=== PATIENT | male | born 1980 | race Caucasian/White ===

== ENCOUNTER → 2021-11-15 | Outpatient (CLI) | payer BC ==
[~2021-11-15] VITALS: Ht 177.8 cm; Wt 124.7 kg
[~2021-11-15] MED LIST: ACETAMINOPHEN325 MG PO; ADDERALL 30 MG30 MG PO; ADIPEX-P37.5 M1 PO; BACLOFEN 10MG T10 MG PO; BARIATRIC MV-I1 EACH PO; BUPROPION XL300 MG PO; CARBAMAZEPINE100 M2 PO; DEPO-TESTO200 MG/1 M IM; FLEXERIL PO; GABAPENTIN600 M1 PO; KEFLEX500 MG PO; OXYCONTIN10 M1 PO; PANTOPRAZOLE SO40 M1 PO; PERCOCET 5-3251 EACH PO; PROZAC10 M1 PO; PYRIDIUM200 MG PO; VITAMIN B-121000 MC2 SUBLING; VYVANSE50 MG PO; VYVANSE60 MG PO; ZANAFLEX4 M1 PO; [UNRECOGNIZED DRUG - OTHER]
--- NOTE | ~2021-11-15 | HPC ---
[facility] [place] [address] PAIN MANAGEMENT CONSULTATION Name: JEREL NICHOLS Room #: REG Lana GonzalezAlexeiPrudenceAlexei#: [id number] Admission: 11/15/21 Attend Phys: Twin Flores DO Discharge: Date of : 76 Report #: [id number] THIS REPORT FOR: cc: Kolton Carrillo,Kolton Hayes,Twin Tyler DO ~ cc: Kolton Carrillo DO DATE OF SERVICE: 11/15/2021 CHIEF COMPLAINT: Left jaw pain. HISTORY OF PRESENT ILLNESS: As you know, the patient is a 41-year-old male, reporting acute onset of left jaw pain beginning somewhere about 10/25/2021. The patient denied injury or trauma to the facial area that may have led to symptom development. He sought evaluation and was advised that his symptoms were likely related to otitis media and was receiving medications, this did not provide improvement. He returned with continued pain. He was then sent to see dentistry professionals. He apparently had some wisdom teeth extracted, again with no improvement in symptoms. He was then sent on to EMT as there was concern the patient might be suffering from temporomandibular joint pain. During that evaluation, the evaluation of the ear structures was normal. There were no concerning findings. He was given a presumptive diagnosis of either temporomandibular joint pain or trigeminal neuralgia. The patient was recently seen by Dr. Kim, Neurology, who advised the patient his symptoms more correlate to trigeminal neuralgia than temporomandibular joint symptoms and was advised to increase his carbamazepine from 100 mg 3 times a day to 200 mg 3 times a day, this was just adjusted today. He has not made the adjustments in medications prior to our visit. He has been referred to our service to discuss whether or not other treatment options might be available. He comes to us with a photograph of his facial structures prior to an ER visit. He shows drooping findings on the left side, more consistent with a Alicia's palsy. He has been referred to our service to discuss treatment options. The patient reports his pain is continuous, steady and constant. He describes the pain as a shooting, aching, sharp, stabbing and throbbing sensation. He places current pain score at 7/10. Daily average at 7/10. He states the pain is 10/10 without medications. He states that his pain is exacerbated with eating, chewing or when his medications wear off. He states that his pain was improved with prednisone therapy, specifically, and lying on a pillow. He has been referred to our service to discuss treatment options to address left facial pain. PAST MEDICAL HISTORY: 1. Essential hypertension, obstructive sleep apnea, allergic rhinitis, triglyceridemia. 2. Chronic low back pain, depression and anxiety. [facility] [address] [place] [address] PAIN MANAGEMENT CONSULTATION Name: JEREL NICHOLS Room #: REG Lana Jolly#: [id number] Admission: 11/15/21 Attend Phys: Twin Flores DO Discharge: Date of : 76 Report #: [id number] 3. Eating disorder. 4. ADD. 5. Iron deficiency anemia. 6. GERD. 7. History of neuralgia. 8. Erectile dysfunction. 9. Bruxism. PAST SURGICAL HISTORY: 1. Bariatric surgery. 2. Cholecystectomy. SOCIAL HISTORY: The patient reports that he is a nonsmoker. He denies IV or illicit drug use. Admits to occasional alcohol beverage. 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 He is not on disability. He is not obtaining disability income and he is not in litigation in regards to pain. He is accompanied by his , present in room today. REVIEW OF SYSTEMS: 1. 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 All other review of systems negative per 12-point review of systems other than those listed in history of present illness. 2. Pain impact score is 61/70, near complete interference of daily activities secondary to pain. ALLERGIES: LATEX. CURRENT MEDICATIONS: Bupropion XL 300 mg once a day, carbamazepine 200 mg 3 times a day, Adderall 30 mg once a day, tizanidine 4 mg twice a day, multivitamin 1 tab per day, acetaminophen 325 mg 6 times a day, cyanocobalamin 1000 mcg per day, gabapentin 600 mg b.i.d. IMAGING: CT of the head without contrast is unremarkable. PHYSICAL EXAMINATION: VITAL SIGNS: Blood pressure 143/86, pulse 84, respiratory rate 20 and unlabored. The patient is 97% on room air. Height 5 feet 10 inches tall, weight 275 pounds, BMI calculated 39.5. GENERAL: Well-developed, well-nourished, well-hydrated exogenously obese 41-year-old male appearing stated age. Pain is rated anywhere from 7-10/10 depending on his medication use. HEENT: Normocephalic, atraumatic. Pupils are round and responsive. He is [address] [address] PAIN MANAGEMENT CONSULTATION Name: JEREL NICHOLS Room #: REG [facility]#: [id number] Admission: 11/15/21 Attend Phys: Twin Flores DO Discharge: Date of : 76 Report #: [id number] intact to light touch throughout the entire facial structures. There is no tinnitus noted over the facial nerve or trigeminal distribution. There are no changes in skin color or texture, concerning of any type of viral etiology. There is noted crepitus with movement of the jaw on the left when compared to the right, directly overlying the temporomandibular joint. NEUROLOGIC: Upper extremity strength equal and symmetrical 5/5, intact to light touch from C5 to T1 dermatomes. ASSESSMENT: 1. Possible trigeminal neuralgia. 2. Possible temporomandibular joint pain. 3. 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 4. Neuropathic pain. PLAN: 1. Based on today's physical exam and history the patient provides, the description the patient uses in regards to pain and the distribution of symptoms, there are 3 possible generators of symptoms. The first being trigeminal neuralgia, though he has no effect on the ophthalmic branch. His branches would more correlate to the V2 and the V3 level without effects of the ophthalmic branch. He could be suffering from temporomandibular joint pain, as he has a longstanding history of bruxism and there is crepitus with movement of the temporomandibular joint on the left side. Deep pressure over this area causes pain intensification, similar to what he is discussing and would correlate to the patient's descriptions of having the sensation of jaw locking up in that area. The other source of the symptoms may be a Alicia's palsy. He does show a picture of himself prior to ER visit, which showed features of Alicia's palsy with drooping facial structures on the left side with resolution within a short period of time, fairly consistent with Alicia's palsy. The patient has sought evaluation through multiple different physicians, initially starting with his primary care physician in the ER. They have given him presumptive diagnoses initially of earache and otitis media and was receiving oral antibiotics with no benefit. He was seen in the Emergency Department with the facial droop on the left and was given a diagnosis of possible Alicia's palsy and/or trigeminal neuralgia. The patient was sent to Dentistry who removed the patient's wisdom teeth on that side without benefit. He did see ENT who gave the patient a diagnosis of possible temporomandibular joint pain versus trigeminal neuralgia. He has also seen Neurology, who has started treating the patient for trigeminal neuralgia, and the patient was then referred on to our clinic to discuss treatment to address these issues. Given the constellation of physicians the patient has seen, I do feel he is on appropriate treatment for virtually each of the processes. The patient has been started on carbamazepine 200 mg dose 3 times a day through his Neurology visit. He has not started the medication as the Neurology visit was this morning. He has been given the presumptive diagnosis of trigeminal neuralgia and they are starting medications appropriate for that therapy. Other [address] [address] PAIN MANAGEMENT CONSULTATION Name: JEREL NICHOLS Room #: REG FROILAN Jolly#: [id number] Admission: 11/15/21 Attend Phys: Twin Flores DO Discharge: Date of : 76 Report #: [id number] treatments that we would recommend that could be possible to use would be an addition of gabapentin, amitriptyline, nortriptyline, clonazepam, or possibly phenytoin. These could all be trialed as part of the treatment course. They are indicated as adjunctive treatment options to the standards, which is carbamazepine, gabapentin, and oxcarbazepine. We also discussed a little bit of some of the surgical options that would be available that would include neuromodulation, percutaneous cryoablation, gamma knife surgery or CyberKnife surgery, or even linear accelerator treatments. Surgical options would include a decompressive microvascular surgery if all other treatments fail. These would be the suggestions for treatment for trigeminal neuralgia. 2. In regards to the possible source being temporomandibular joint pain, the patient has a longstanding history of bruxism. Apparently, he grinds his teeth, not only at nighttime, but also during the daytime hours. I believe that the patient needs to obtain a bite block from his dentist or possibly the ENT he has seen. This bite block would reduce the possible strain at the TMJ level. Whether this is the source of the patient's current symptoms, I believe, a bite block would be important as he will develop changes to his teeth over time if he continues to have these issues of grinding at night and during the daytime hours. We have also cautioned the patient on reducing strain at the TMJ by changing some of his diet, discontinuing any gum chewing or chewing of any type of objects that have a requirement of a strong pressure, such as power bars and other candy type products. The patient will need to follow up to get a bite block through ENT or Dentistry. 3. The patient has seen Neurology in regards to his trigeminal neuralgia. I recommend he continue to seek treatment through their services. From a pain management standpoint, we do have the possibility of having the patient trial a trigeminal nerve block. This will provide some temporary relief, but will not provide any long-term benefit. I did discuss with the patient the option for that treatment, but did also advise the patient that it has a low efficacy and is somewhat painful as an injection. The patient chose not to undergo the procedure. 4. No further changes in medication were offered to the patient today. We recommend that the patient utilize the treatment course put forth by the [facility] in regards to treatment for trigeminal neuralgia that is available on the Internet. The medications listed above could be quite beneficial. We will defer to the primary team if they wish to initiate that therapy or possibly Neurology. 5. We wish to thank Dr. Carrillo for the opportunity to see the patient in consultation. He will be following up with Neurology closely for treatment. He can also follow up with his PCP for any adjustments in therapy necessary. We are hopeful the information provided here will give us some direction for further treatment. I do feel it would be important to rule out the possibility of a Alicia's palsy as the source of symptoms and the temporomandibular joint as the possible source of pain before specifically treating only trigeminal neuralgia. [address] [address] PAIN MANAGEMENT CONSULTATION Name: JEREL NICHOLS Room #: [facility] [id number] Admission: 11/15/21 Attend Phys: Twin Flores DO Discharge: Date of : 76 Report #: [id number] Again, we wish to thank you for the opportunity to see the patient in consultation. By: [id number] Twin Flores DO /sonny
[2021-11-15 14:07] VITALS: BP 143/86
--- NOTE | 2021-11-15 14:53 | NUR ---
Pain Clinic Assessment: 1. History of Osteoarthritis: History of Rheumatoid Arthritis: 2. Height: 5 ft. 10 in. 177.8 cm. Weight: 275.0 lb. oz. 124.740 kg. Patient's BMI: 39.5 3. Vital Signs: BP: 143/86 Pulse: 84 Resp: 20 Temp: 02 Sat: 97 ECG Mon: 4. Pain Intensity: 7 WITH MEDS 10 WITHOUT 5. Fall Risk: Dizziness: N Needs help standing or walking: N Fallen in the last 3 months: N Fall risk comments: 6. Patient on Blood Thinner: None 7. History of Hypertension: Y 8. Opioid Therapy greater than 6 weeks: N Opiate Contract Signed: 9. Risk Assessment Tool Provided: 0-3 LOW RISK 10. Functional Assessment Tool: 61/70 11. Recreational Drug Use: Never Drug Type: Tobacco Use: Never Smoker Tobacco Type: Amount or Packs/day: How Many Years: Alcohol Use: Yes Frequency: Monthly Quant: 1 DRINK
== END ==
LOC: PAIN 10:47
PROVIDERS: ATTEND Anesthesiology Pain Medicine
DX: M79.2 Neuralgia and neuritis, unspecified (principal); R68.84 Jaw pain; Z79.899 Other long term (current) drug therapy; Z88.8 Allergy status to other drugs, medicaments and biological substances